=== PATIENT | female | born 1940 | race Hispanic/Latino ===

== ENCOUNTER 2018-07-20 11:55 | Emergency (ER) | payer MEDICARE ==
[2018-07-20 12:06] VITALS: BP 138/67
--- NOTE | 2018-07-20 13:03 | Emergency Department Report ---
Makayla Doc - Documentation Documentation: Patient is a 77-year-old female who is coming down from a ladder and missed the last rung and actually brought the ladder down upon her. This occurred yesterday. Patient has a 1 cm lack above the right eye with some localized soft tissue swelling and a black eye. Patient has no tenderness extraoral orbital. Her extraocular movements are intact. Patient also is complaining of right middle toe pain. Patient states she hasn't to straighten her toe out and she is jamila tape his toe and believes it may have been fractured. Patient has a Band-Aid holding the laceration closed. There is good approximation of the margins. There is a black eye but there is no tenderness present. Images that is not needed for the patient's black. Patient also states there was no loss of consciousness. Patient's right middle toe does have tenderness and x-ray will be taken to rule out fracture.
[2018-07-20] MEDS ORDERED: BOOSTRIX IM ONE (13:35)
--- NOTE | 2018-07-20 13:38 | XRay Report ---
RIGHT FOOT, 3 views: History: Middle toe injury. Osteopenia is evident. No evidence for displaced fracture or dislocation. No significant degenerative changes or erosive joint pathology. The soft tissues are unremarkable. IMPRESSION: Osteopenia. No acute osseous injury is appreciated.
--- NOTE | 2018-07-20 13:40 | Emergency Department Report ---
ED Fall HPI - General Chief Complaint: Fall Stated Complaint: BLACK EYE/FALL Time Seen by Provider: 07/20/18 12:52 Source: patient Mode of arrival: Ambulatory - History of Present Illness Initial Comments: This is a 77-year-old female nontoxic, well nourished in appearance, no acute signs of distress presents to the ED with c/o of right eyebrow laceration and right 4th toe pain status post fall that occurred yesterday around 3 PM. Patient stated that she was on the ladder and while going to ladder she missed the step when she fell on her buttock and ladder hit her right eyebrow and toe area. Patient denies any LOC. Patient denies any head trauma or neck pain. Patient denies any back pain. Patient denies any other trauma. Patient denies any headache, stiff neck, nausea, vomiting, chest pain, shortness of breath, numbness, tingling, bowel pain. Patient states she is not up-to-date with tetanus. MD Complaint: fall -: days(s) (1) Fall From: standing Fall Witnessed: no Place Fall Occurred: home Loss of Consciousness: none Prolonged Down Time?: no Location: face Location - Extremities: Right: Foot Severity: mild Severity scale (0 -10): 3 Quality: aching Context: tripped/slipped Associated Symptoms: denies. denies: headache, neck pain, numbness, weakness, chest paint, shortness of breath, abdominal pain, hematuria, unable to walk, lightheaded, vertigo, confusion - Related Data Home Medications Medication Instructions Recorded Confirmed Last Taken Aspirin [Aspirin TAB] 325 mg PO DAILY 11/02/14 11/15/14 11/15/14 Atenolol [Tenormin] 50 mg PO DAILY 11/02/14 11/15/14 11/14/14 Atorvastatin [Lipitor] 80 mg PO DAILY 11/02/14 11/15/14 11/14/14 Clopidogrel Bisulfate [Plavix] 75 mg PO DAILY 11/02/14 11/15/14 11/15/14 Colestipol HCl 300 gram PO BID 11/02/14 11/15/14 11/15/14 Gabapentin 600 mg PO QID 11/02/14 11/15/14 11/15/14 Levothyroxine Sodium 75 mcg PO DAILY 11/02/14 11/15/14 11/15/14 Mirtazapine [Remeron] 30 mg PO DAILY 11/02/14 11/15/14 11/14/14 Multivit,Iron,Min 5/Folic Acid 1 tab PO DAILY 11/02/14 11/15/14 11/14/14 [Strovite Forte Caplet] Nitroglycerin [Nitrostat] 0.4 mg SUBLINGUAL PRN PRN 11/02/14 11/15/14 Unknown [place]-3 Acid Ethyl Esters [Lovaza] 3 gram PO BID 11/02/14 11/15/14 11/14/14 Pantoprazole [Protonix TAB] 40 mg PO DAILY 11/02/14 11/15/14 11/14/14 Trazodone HCl [traZODone] 100 mg PO DAILY 11/02/14 11/15/14 11/14/14 Previous Rx's Medication Instructions Recorded Last Taken Type Ramipril 2.5 mg PO QDAY #30 cap 11/02/14 11/14/14 Rx Acetaminophen 500 mg PO Q8H PRN #20 tablet 07/20/18 Unknown Rx Sulfamethoxazole/Trimethoprim 1 each PO BID #14 tablet 07/20/18 Unknown Rx [Bactrim DS TAB] Allergies Allergy/AdvReac Type Severity Reaction Status Date / Time meperidine HCl [From Demerol] AdvReac Unknown Verified 07/20/18 12:02 Penicillins AdvReac Unknown Verified 07/20/18 12:02 TAPE AdvReac Unknown Uncoded 11/01/14 15:47 ED Review of Systems ROS: Stated complaint: BLACK EYE/FALL Other details as noted in HPI Constitutional: denies: chills, fever Eyes: denies: eye pain, eye discharge, vision change ENT: denies: ear pain, throat pain Respiratory: denies: cough, shortness of breath, wheezing Cardiovascular: denies: chest pain, palpitations Endocrine: no symptoms reported Gastrointestinal: denies: abdominal pain, nausea, diarrhea Genitourinary: denies: urgency, dysuria, discharge Musculoskeletal: denies: back pain, joint swelling, arthralgia Skin: denies: rash, lesions Neurological: denies: headache, weakness, paresthesias Psychiatric: denies: anxiety, depression Hematological/Lymphatic: denies: easy bleeding, easy bruising ED Past Medical Hx - Past Medical History Hx Hypertension: Yes - Social History Smoking Status: Never Smoker Substance Use Type: None - Medications Home Medications: Home Medications Medication Instructions Recorded Confirmed Last Taken Type Aspirin [Aspirin TAB] 325 mg PO DAILY 11/02/14 11/15/14 11/15/14 History Atenolol [Tenormin] 50 mg PO DAILY 11/02/14 11/15/14 11/14/14 History Atorvastatin [Lipitor] 80 mg PO DAILY 11/02/14 11/15/14 11/14/14 History Clopidogrel Bisulfate [Plavix] 75 mg PO DAILY 11/02/14 11/15/14 11/15/14 History Colestipol HCl 300 gram PO BID 11/02/14 11/15/14 11/15/14 History Gabapentin 600 mg PO QID 11/02/14 11/15/14 11/15/14 History Levothyroxine Sodium 75 mcg PO DAILY 11/02/14 11/15/14 11/15/14 History Mirtazapine [Remeron] 30 mg PO DAILY 11/02/14 11/15/14 11/14/14 History Multivit,Iron,Min 5/Folic Acid 1 tab PO DAILY 11/02/14 11/15/14 11/14/14 History [Strovite Forte Caplet] Nitroglycerin [Nitrostat] 0.4 mg SUBLINGUAL PRN PRN 11/02/14 11/15/14 Unknown History [place]-3 Acid Ethyl Esters [Lovaza] 3 gram PO BID 11/02/14 11/15/14 11/14/14 History Pantoprazole [Protonix TAB] 40 mg PO DAILY 11/02/14 11/15/14 11/14/14 History Ramipril 2.5 mg PO QDAY #30 cap 11/02/14 11/15/14 11/14/14 Rx Trazodone HCl [traZODone] 100 mg PO DAILY 11/02/14 11/15/14 11/14/14 History Acetaminophen 500 mg PO Q8H PRN #20 tablet 07/20/18 Unknown Rx Sulfamethoxazole/Trimethoprim 1 each PO BID #14 tablet 07/20/18 Unknown Rx [Bactrim DS TAB] ED Physical Exam - General Limitations: No Limitations General appearance: alert, in no apparent distress - Head Head exam: Present: atraumatic, normocephalic - Expanded Head Exam Expanded Head exam: Present: laceration, hematoma 1 - 1 cm laceartion that is swabbed and proximated with tape. 2 - hematoma - Eye Eye exam: Present: normal appearance, PERRL, EOMI Pupils: Present: normal accommodation - ENT ENT exam: Present: normal exam, mucous membranes moist - Neck Neck exam: Present: normal inspection, full ROM. Absent: tenderness, meningismus, lymphadenopathy - Respiratory Respiratory exam: Present: normal lung sounds bilaterally. Absent: respiratory distress, wheezes, rales, rhonchi, stridor, chest wall tenderness, accessory muscle use, decreased breath sounds, prolonged expiratory - Cardiovascular Cardiovascular Exam: Present: regular rate, normal rhythm, normal heart sounds. Absent: bradycardia, tachycardia, irregular rhythm, systolic murmur, diastolic murmur, rubs, gallop - GI/Abdominal GI/Abdominal exam: Present: soft, normal bowel sounds. Absent: distended, tenderness, guarding, rebound, rigid, diminished bowel sounds - Rectal Rectal exam: Present: deferred - Extremities Exam Extremities exam: Present: normal inspection, full ROM, tenderness, normal capillary refill. Absent: joint swelling - Expanded Lower Extremity Exam Right Hip exam: Present: normal inspection, full ROM. Absent: tenderness, swelling Upper Leg exam: Present: normal inspection, full ROM. Absent: tenderness, swelling Knee exam: Present: normal inspection, full ROM. Absent: tenderness, swelling Lower Leg exam: Present: normal inspection, full ROM. Absent: tenderness, swelling Ankle exam: Present: normal inspection, full ROM. Absent: tenderness, swelling Foot/Toe exam: Present: normal inspection, full ROM, tenderness. Absent: swelling, abrasion, laceration, ecchymosis, deformity, crepidus, dislocation, erythema, amputation, puncture wound, foreign body, calcaneal tenderness, tenderness at base of 5th metatarsal, nail avulsion, subungual hematoma Neuro vascular tendon exam: Present: no vascular compromise. Absent: pulse deficit, abnormal cap refill Gait: Positive: observed and normal - Back Exam Back exam: Present: normal inspection, full ROM. Absent: tenderness, CVA tenderness (R), CVA tenderness (L), muscle spasm, paraspinal tenderness, vertebral tenderness, rash noted - Neurological Exam Neurological exam: Present: alert, oriented X3, CN II-XII intact, normal gait - Expanded Neurological Exam Expanded Patient oriented to: Present: person, place, time Cranial nerves: EOM's Intact: Normal, Facial Sensation: Normal Cerebellar function: Finger to Nose: Normal Upper motor neuron: Pronator Drift: Normal Sensory exam: Upper Extremity Light Touch: Normal, Upper Extremity Pin Prick: Normal, Upper Extremity Temperature: Normal, UE 2 Point Discrimination: Normal, Lower Extremity Light Touch: Normal, Lower Extremity Pin Prick: Normal, Lower Extremity Temperature: Normal, LE 2 Point Discrimination: Normal Motor strength exam: RUE: 5, LUE: 5, RLE: 5, LLE: 5 Best Eye Response (Pippa): (4) open spontaneously Best Motor Response ([place]): (6) obeys commands Best Verbal Response (Pippa): (5) oriented [place] Total: 15 - Psychiatric Psychiatric exam: Present: normal affect, normal mood - Skin Skin exam: Present: warm, dry, intact, normal color. Absent: rash ED Course Vital Signs 07/20/18 12:02 Temperature 98.7 F Pulse Rate 90 Respiratory 18 Rate Blood Pressure 138/67 O2 Sat by Pulse 97 Oximetry - Reevaluation(s) Reevaluation #1: 07/20/18 13:42 Patient is speaking in full sentences with no signs of distress noted. ED Medical Decision Making - Medical Decision Making This is a 77-year-old female that presents with a right eyebrow contusion and right toe strain. Patient is stable was examined by me and Dr. Sweet. As per Dr. Sweet, no CT of facial bones or head due to no symptoms or any head trauma or neck trauma. X-ray has been obtained of the right toe and reviewed by Dr. Sweet with no fractures or dislocation. Patient is neurologically stable. Due to laceration occurred more than 12 hours and seems to be approximated with tape area has been cleaned with soap and water and a dressing still have been applied. He did receive a tetanus booster in the ER. I will discharge patient with Bactrim. Patient was referred to Follow-up with a primary care doctor in 3 -5 days or if symptoms worsen and continue return to emergency room as soon as possible. At time of discharge, the patient does not seem toxic or ill in appearance. No acute signs of distress noted. Patient agrees to discharge treatment plan of care. No further questions noted by the patient. Critical care attestation.: If time is entered above; I have spent that time in minutes in the direct care of this critically ill patient, excluding procedure time. ED Disposition Clinical Impression: Contusion of right eyebrow Qualifiers: Encounter type: initial encounter Qualified Code(s): S00.11XA - Contusion of right eyelid and periocular area, initial encounter Fall Qualifiers: Encounter type: initial encounter Qualified Code(s): W19.XXXA - Unspecified fall, initial encounter Strain of fourth toe, right Qualifiers: Encounter type: initial encounter Qualified Code(s): S96.911A - Strain of unspecified muscle and tendon at ankle and foot level, right foot, initial encounter Disposition: TO HOME OR SELFCARE Is pt being admited?: No Does the pt Need Aspirin: No Condition: Stable Instructions: Contusion in Adults (ED), Fall Prevention for Older Adults (ED) Additional Instructions: Follow-up with a primary care doctor in 3-5 days or if symptoms worsen and continue return to emergency room as soon as possible. Prescriptions: Acetaminophen 500 mg PO Q8H PRN #20 tablet PRN Reason: Pain , Severe (7-10) Sulfamethoxazole/Trimethoprim [Bactrim DS TAB] 1 each PO BID #14 tablet Referrals: PRIMARY MD ALEXANDER [Primary Care Provider] - 3-5 Days ALINE PENA MD [Staff Physician] - 3-5 Days [facility] [place] [Outside] - 3-5 Days [facility] [place] [Outside] - 3-5 Days
== END 2018-07-20 14:02 | disposition home or self-care (01) ==
LOC: ED 11:55
DX: S00.11XA Contusion of right eyelid and periocular area, initial encounter (principal); S96.911A Strain of unspecified muscle and tendon at ankle and foot level, right foot, initial encounter; I10 Essential (primary) hypertension; Z88.0 Allergy status to penicillin; Z88.8 Allergy status to other drugs, medicaments and biological substances; Z91.048 Other nonmedicinal substance allergy status; Z79.82 Long term (current) use of aspirin; W01.0XXA Fall on same level from slipping, tripping and stumbling without subsequent striking against object, initial encounter; Y93.89 Activity, other specified; Y92.488 Other paved roadways as the place of occurrence of the external cause; Y99.8 Other external cause status
CPT/HCPCS: 90471; 90715; 99283

== ENCOUNTER 2020-07-30 09:04 | Outpatient (CLI) | payer MEDICARE ==
--- NOTE | 2020-07-30 12:20 | Magnetic Resonance Report ---
. MR brain wo/w con INDICATION / CLINICAL INFORMATION: 79 years Female; MAIN. TECHNIQUE: Multiplanar, multisequence MR images of the brain were obtained. COMPARISON: None available. FINDINGS: BRAIN / INTRACRANIAL CONTENTS: The motion degrades the image quality. However, there is extensive cer ebral white matter disease most consistent with microvascular angiopathy. The diffusion imaging revea ls no evidence of acute infarction. There is moderate cerebral atrophy with associated prominence of the ventricular system. No extra-axi al fluid collections or significant mass effect is identified. The motion particularly degrades the p ostcontrast sequences. However, no definitive intra-axial enhancing lesions are appreciated at. CRANIOCERVICAL JUNCTION: No significant abnormality. VASCULAR FLOW-VOIDS: No significant abnormality. ORBITS: No significant abnormality of visualized orbits. SINUSES / MASTOIDS: There is mild coastal thickening involving the left ethmoid air cells. ADDITIONAL FINDINGS: None. IMPRESSION: 1. The motion degrades image quality. However, there is extensive microvascular angiopathy and modera te cerebral atrophy as described without evidence of recent infarction. Signer Name: Keith Turcios MD Signed: 07/30/2020 12:15 PM Workstation Name: [id number]
--- NOTE | 2020-07-30 12:26 | Magnetic Resonance Report ---
MR MRA/MRV head wo con INDICATION / CLINICAL INFORMATION: 79 years Female; Hypertension, dizziness. TECHNIQUE: 3-D time of flight. NASCET type criteria used to evaluate stenoses. COMPARISON: None available. FINDINGS: INTERNAL CAROTID ARTERIES: There is no significant focal stenosis involving the distal internal carot id arteries by NASCET criteria. VERTEBROBASILAR SYSTEM: The vertebral basilar system also demonstrate appropriate caliber without sig nificant focal stenosis. CEREBRAL ARTERIES: The proximal cerebral arteries and adjacent branches also demonstrate appropriate caliber without focal stenosis. ANEURYSM: None identified. IMPRESSION: No significant abnormality on this MRA of the brain. Signer Name: Keith Turcios MD Signed: 07/30/2020 12:21 PM Workstation Name: [id number]
== END 2020-07-30 09:05 | disposition home or self-care (01) ==
LOC: MRI 09:04
PROVIDERS: ATTEND Internal Medicine
DX: G93.89 Other specified disorders of brain (principal)
CPT/HCPCS: 70544; 70553; A9577

== ENCOUNTER 2020-08-14 08:36 | Outpatient (CLI) | payer MEDICARE ==
[2020-08-14] MEDS ORDERED: SINCALIDE 5 MCG VIAL IV ONE ×2 (10:05→10:20)
[2020-08-14] MEDS ORDERED: WATER FOR INJ Sterile (PF) 10 ML ONE (10:06)
--- NOTE | 2020-08-14 11:18 | Nuclear Medicine Report ---
HIDA SCAN INDICATION: CALCULAS OF GALLBLADDER,TYPE 2 DIABETES, TECHNIQUE: 5.4 mCi of Tc-99m mebrofenin was injected IV per protocol. 1.18 mcg of Kinevac was admin istered for the ejection fraction. Multiple planar images in the region of the liver were then obtain ed. FINDINGS: There is prompt radiotracer uptake identified within the liver. The gallbladder was visuali zed at 20 min. There is normal GI excretion. The gallbladder ejection fraction was measured at 9 % ( 35% or greater is considered normal). The patient reports nausea was reproduced following the infusion of Kinevac. IMPRESSION: No evidence of biliary obstruction. Decreased gallbladder ejection fraction. Consider biliary dyskinesia. Signer Name: Carson Rico Jr, MD Signed: 08/14/2020 11:14 AM Workstation Name: [id number]
== END 2020-08-14 08:37 | disposition home or self-care (01) ==
LOC: NM 08:36
PROVIDERS: ATTEND Internal Medicine Gastroenterology
DX: K82.8 Other specified diseases of gallbladder (principal); K52.839 Microscopic colitis, unspecified; K75.81 Nonalcoholic steatohepatitis (NASH); E11.9 Type 2 diabetes mellitus without complications; K80.20 Calculus of gallbladder without cholecystitis without obstruction
CPT/HCPCS: 78227; A9537; J2805